=== PATIENT | female | born 1940 | race African-American/Black ===

== ENCOUNTER 2017-08-08 15:42 | Emergency (ER) | payer BC, MEDICARE ==
[~2017-08-08] VITALS: Ht 157.5 cm; Wt 83.0 kg
[2017-08-08 15:44] VITALS: BP 132/76
[2017-08-08] MEDS ORDERED: ACETAMINOPHEN 650MG/20.3ML UDC PO ONE (16:00)
== END 2017-08-08 18:10 | disposition home or self-care (01) ==
LOC: ER 17:48
DX: S80.02XA Contusion of left knee, initial encounter (principal); M79.641 Pain in right hand; E78.00 Pure hypercholesterolemia, unspecified; I10 Essential (primary) hypertension; M43.19 Spondylolisthesis, multiple sites in spine; W01.0XXA Fall on same level from slipping, tripping and stumbling without subsequent striking against object, initial encounter; Y93.89 Activity, other specified; Y99.8 Other external cause status; Y92.89 Other specified places as the place of occurrence of the external cause; Z96.659 Presence of unspecified artificial knee joint
CPT/HCPCS: 29125; 72100; 73110; 73130; 73562; 99284

== ENCOUNTER 2020-12-30 20:16 | Inpatient (IN) | payer MEDICARE, BC ==
[~2020-12-30] VITALS: Ht 157.5 cm; Wt 81.4 kg
[2020-12-30] MEDS ORDERED: HYDROCODONE/ACETAMINOPHEN 10/325MG TABLET PO ONE (22:30)
[2020-12-30 22:56] LABS: CLARITY URINE CLEAR (CLEAR); COLOR URINE YELLOW (YELLOW); KETONES URINE NEGATIVE (NEGATIVE); LEUKOCYTE ESTERASE URINE TRACE (NEGATIVE); NITRITE URINE NEGATIVE (NEGATIVE); OCCULT BLOOD URINE NEGATIVE (NEGATIVE); PROTEIN URINE NEGATIVE (NEGATIVE); SPECIFIC GRAVITY URINE 1.018 (1.005-1.030)
[2020-12-30 23:14] LABS: CHLORIDE 104 mEq/L (98-107)
[2020-12-30 23:19] LABS: BASOPHILS % 0.5 % (0.0-2.0); EOSINOPHILS % 0.8 % (0.0-5.0); HEMATOCRIT. 31.7 % (36.0-48.0); HEMOGLOBIN. 10.8 g/dL (12.0-16.0); LYMPHOCYTES % 12.5 % (20.0-50.0); MEAN CORPUSCULAR HEMOGLOBIN 30.7 pg (28.0-32.0); MEAN CORPUSCULAR VOLUME 89.8 fL (81.0-99.0); MEAN PLATELET VOLUME 7.5 fl (7.4-10.4); MONOCYTES % 4.1 % (2.0-8.0); NEUTROPHILS % 82.1 % (40.0-76.0); PLATELET 328 x1000/uL (130-400); RED BLOOD CELL COUNT 3.52 mill/uL (4.2-5.4); RED CELL DISTRIBUTION WIDTH 14.6 % (11.6-14.6)
[2020-12-31] MEDS ORDERED: MORPHINE SULFATE 4 MG/ML CPJ (NOT FOR IM USE) IV ONE (01:45)
[2020-12-31] MEDS ORDERED: MORPHINE SULFATE 2 MG/ML CPJ (NOT FOR IM USE) IV ONE (02:45)
[2020-12-31 09:15] VITALS: BP 137/53
[2020-12-31] MEDS ORDERED: ONDANSETRON HCL 4MG/2ML INJ IV PRN ×2 (09:45)
[2020-12-31] MEDS ORDERED: ACETAMINOPHEN 325MG TABLET PO PRN ×2 (09:45)
[2020-12-31 12:00] VITALS: BP 104/46
[2020-12-31 15:00] LABS: T4 FREE 1.06 ng/dL (0.76-1.46)
[2020-12-31 16:00] VITALS: BP 108/79
[2020-12-31 20:00] VITALS: BP 170/51
[2021-01-01] VITALS (8 sets, daily range): BP systolic 127–165; BP diastolic 45–87
[2021-01-01] MEDS ORDERED: AMLODIPINE 5MG TABLET PO SCH (09:45)
[2021-01-01] MEDS ORDERED: TRAMADOL 50MG TABLET PO PRN (10:45)
[2021-01-01] MEDS: CLOPIDOGREL 75MG TABLET PO SCH (11:03)
[2021-01-01] MEDS: AMLODIPINE 10MG TABLET PO SCH (11:03)
[2021-01-01] MEDS ORDERED: ATORVASTATIN CALCIUM 40MG TABLET PO SCH (21:00)
[2021-01-02] VITALS: BP 131/51
[2021-01-02 04:00] VITALS: BP 109/56
[2021-01-02 08:00] VITALS: BP 138/66
[2021-01-02] MEDS: AMLODIPINE 10MG TABLET PO SCH (08:38)
[2021-01-02] MEDS: CLOPIDOGREL 75MG TABLET PO SCH (08:38)
[2021-01-02 12:00] VITALS: BP 135/51
[2021-01-02 15:04] VITALS: BP 133/51
[2021-01-02 16:00] VITALS: BP 133/51
== END 2021-01-02 17:00 | disposition home or self-care (01) | DRG 73 ==
LOC: ER 20:16 → MICUSO 12-31 01:09 → 7EST 12-31 08:02
PROVIDERS: ADMIT Internal Medicine; ATTEND Internal Medicine
DX: G90.8 Other disorders of autonomic nervous system (principal); I50.43 Acute on chronic combined systolic (congestive) and diastolic (congestive) heart failure; G93.41 Metabolic encephalopathy; D64.9 Anemia, unspecified; E66.9 Obesity, unspecified; E78.00 Pure hypercholesterolemia, unspecified; E78.5 Hyperlipidemia, unspecified; I11.0 Hypertensive heart disease with heart failure; R00.1 Bradycardia, unspecified; Z96.659 Presence of unspecified artificial knee joint; I25.10 Atherosclerotic heart disease of native coronary artery without angina pectoris; Z20.822 Contact with and (suspected) exposure to COVID-19; S00.03XA Contusion of scalp, initial encounter; W22.8XXA Striking against or struck by other objects, initial encounter; Y99.8 Other external cause status; Z79.02 Long term (current) use of antithrombotics/antiplatelets; Z98.61 Coronary angioplasty status; Z68.32 Body mass index [BMI] 32.0-32.9, adult; Y93.G3 Activity, cooking and baking; Y92.090 Kitchen in other non-institutional residence as the place of occurrence of the external cause; Z71.3 Dietary counseling and surveillance
CPT/HCPCS: 36415; 71045; 72128; 80053; 81003; 83880; 84439; 84443; 84484; 85025; 87426; 93005; 93306; 99285; J2270